=== PATIENT | female | born 1950 | race Caucasian/White ===

== ENCOUNTER → 2018-01-28 | Outpatient (CLI) | payer MEDICARE | END | disposition home or self-care (01) | LOC: OIH 15:33 | PROVIDERS: ATTEND Family Medicine | DX: M25.552 Pain in left hip (principal); M47.896 Other spondylosis, lumbar region | CPT/HCPCS: 73502 ==

== ENCOUNTER → 2018-02-18 | Outpatient (CLI) | payer MEDICARE | END | disposition home or self-care (01) | LOC: OIH 16:37 | PROVIDERS: ATTEND Family Medicine | DX: M51.36 Other intervertebral disc degeneration, lumbar region (principal); M47.894 Other spondylosis, thoracic region; R07.81 Pleurodynia | CPT/HCPCS: 71100; 72070; 73502 ==

== ENCOUNTER → 2018-08-05 | Outpatient (CLI) | payer MEDICARE | END | disposition home or self-care (01) | LOC: OIH 16:12 | PROVIDERS: ATTEND Family Medicine | DX: M12.532 Traumatic arthropathy, left wrist (principal); M13.88 Other specified arthritis, other site | CPT/HCPCS: 73110 ==

== ENCOUNTER 2019-06-17 13:17 | Emergency (ER) | payer MEDICARE ==
[2019-06-17] MEDS ORDERED: ALBUTEROL SULFATE 0.083% 2.5 MG/3 ML INH IH ONE (14:22)
[2019-06-17] MEDS ORDERED: IPRATROPIUM 0.5 MG/2.5 ML INH IH ONE (14:22)
[2019-06-17 14:36] LABS: BASOPHILS % (AUTO) 0.5 % (0.0-5.0); HEMATOCRIT 39.4 % (36-48); LYMPHOCYTES % (AUTO) 10.6 % (21.0-51.0); MEAN CORPUSCULAR HEMOGLOBIN 30.5 pg (27.0-33.0); MEAN CORPUSCULAR HGB CONC 33.6 g/dL (32.0-36.0); MEAN CORPUSCULAR VOLUME 90.6 fL (79-99); MONOCYTES % (AUTO) 12.5 % (3.0-13.0); NEUTROPHILS % (AUTO) 76.4 % (40.0-77.0); PLATELET COUNT (AUTO) 249 K/uL (130-400); RED BLOOD CELL COUNT(AUTO) 4.34 MIL/uL (4.00-5.50); RED CELL DISTRIBUTION WIDTH 13.3 % (11.0-15.5); WHITE BLOOD COUNT (AUTO) 4.2 K/uL (4.8-10.8)
[2019-06-17 14:53] LABS: CREATININE 0.7 mg/dL (0.5-1.5); POTASSIUM 4.2 mmol/L (3.5-5.1)
[2019-06-17 15:06] LABS: B-TYPE NATRIURETIC PEPTIDE 8 pg/mL (0-100)
[2019-06-17] MEDS ORDERED: KETOROLAC TROMETHAMINE 15MG/ML ONE (15:46)
== END 2019-06-17 16:12 | disposition home or self-care (01) ==
LOC: EDH 13:17
DX: J20.9 Acute bronchitis, unspecified (principal); F41.9 Anxiety disorder, unspecified; F32.9 Major depressive disorder, single episode, unspecified; E78.00 Pure hypercholesterolemia, unspecified; I10 Essential (primary) hypertension; Z91.041 Radiographic dye allergy status
CPT/HCPCS: 36415; 71046; 80048; 83880; 84484; 85025; 93005; 94640; 96374; 99285; J1885

== ENCOUNTER → 2020-01-20 | Outpatient (CLI) | payer MEDICARE | END | disposition home or self-care (01) | LOC: OIH 16:14 | PROVIDERS: ATTEND Family Medicine | DX: J44.9 Chronic obstructive pulmonary disease, unspecified (principal) | CPT/HCPCS: 71046 ==

== ENCOUNTER → 2020-11-01 | Outpatient (CLI) | payer MEDICARE | END | disposition home or self-care (01) | LOC: OIH 13:33 | PROVIDERS: ATTEND Family Medicine | DX: M47.816 Spondylosis without myelopathy or radiculopathy, lumbar region (principal); M47.814 Spondylosis without myelopathy or radiculopathy, thoracic region; M15.9 Polyosteoarthritis, unspecified; E55.9 Vitamin D deficiency, unspecified; E66.01 Morbid (severe) obesity due to excess calories; J44.9 Chronic obstructive pulmonary disease, unspecified | CPT/HCPCS: 72070; 72100 ==